=== PATIENT | female | born 1960 | race African-American/Black ===

== ENCOUNTER 2019-11-05 06:21 | Day surgery (SDC) | payer OTHER ==
[2019-11-01 14:10] VITALS: BMI 24.2
[2019-11-05] MEDS ORDERED: MIDAZOLAM HCL 2 MG/2 ML SINGLE DOSE VIAL ONE (07:04)
[2019-11-05] MEDS ORDERED: SUCCINYLCHOLINE CHLORIDE 200 MG/10 ML SYRINGE ONE (07:04)
[2019-11-05] MEDS ORDERED: PROPOFOL 20 ML ONE ×2 (07:04)
[2019-11-05] MEDS ORDERED: BUPIVACAINE HCL/PF 0.25% (2.5MG/ML) 10 ML VIAL ONE (07:22)
[2019-11-05] MEDS ORDERED: LIDOCAINE HCL 1%, 10 MG/ML (20ML VIAL) ONE (07:22)
[2019-11-05 08:55] VITALS: BP 132/80; PULSE 66; TEMP 97.6
--- NOTE | 2019-11-07 16:20 | OP ---
DATE OF OPERATION: 11/05/2019 SURGEON: Adelaida Bang MD [employer] SECURITY: NOA Diaz PREOPERATIVE DIAGNOSIS: Right carpal tunnel syndrome. POSTOPERATIVE DIAGNOSIS: Right carpal tunnel syndrome. PROCEDURE: Carpal tunnel release. FINDINGS: Thickened transcarpal ligament impinging upon median nerve. PROCEDURE: Under sterile conditions, right the upper extremity was prepped and draped in a sterile fashion. Incision was made along the longitudinal portion of the carpal tunnel. A longitudinal incision was made along the proximal portion of the palm, following the palm crease. This was taken down to the transcarpal ligament, which was released initially with scalpel and then extended proximally and distally using blunt tenotomy scissors. The median nerve was identified and completely released from impingement by the transcarpal ligament. The wound was then irrigated with copious amounts of irrigation. Skin was closed with 5-0 nylon in single interrupted sutures. The PA listed above was present and assisted at surgery. Their presence was absolutely medically necessary for the completion of the procedure. They helped hold the arthroscopy, pass instruments (and implants when indicated) and the procedure could not have been completed without their assistance. ADELAIDA BANG M.D. [id number]
== END 2019-11-05 08:55 | disposition home or self-care (01) ==
LOC: FASU 06:21
PROVIDERS: ATTEND Orthopaedic Surgery
PROC: 01N50ZZ Release Median Nerve, Open Approach (ICD-10-PCS; principal; 2019-11-05 07:54)
DX: G56.01 Carpal tunnel syndrome, right upper limb (principal)